=== PATIENT | male | born 1970 | race Caucasian/White ===

== ENCOUNTER 2020-06-14 16:56 | Emergency (ER) | payer OTHER ==
[~2020-06-14] VITALS: Ht 167.6 cm; Wt 97.5 kg
[2020-06-14] MEDS ORDERED: SEROQUEL 100 M100 M1 PO (17:20)
[2020-06-14] MEDS ORDERED: TRAZODONE HCL50 MG PO (17:21)
[2020-06-14] MEDS ORDERED: NORCO 5-325 TA1 EAC2 PO (17:59)
[2020-06-14] MEDS ORDERED: AUGMENTIN 875-1 EACH PO (17:59)
[2020-06-14 19:08] VITALS: BP 130/75
== END 2020-06-14 19:12 | disposition home or self-care (01) ==
LOC: ER 16:56
DX: S71.152A Open bite, left thigh, initial encounter (principal); Z79.899 Other long term (current) drug therapy; Z20.3 Contact with and (suspected) exposure to rabies; W54.0XXA Bitten by dog, initial encounter; Y93.89 Activity, other specified; Y92.89 Other specified places as the place of occurrence of the external cause; Y99.8 Other external cause status

== ENCOUNTER 2020-06-17 13:27 | Emergency (ER) | payer OTHER ==
[~2020-06-17] VITALS: Ht 167.6 cm; Wt 97.5 kg
[~2020-06-17 13:27] MED LIST: AUGMENTIN 875-1 EACH PO; NORCO 5-325 TA1 EAC2 PO; SEROQUEL 100 M100 M1 PO; TRAZODONE HCL50 MG PO
[2020-06-17 14:00] VITALS: BP 126/79
== END 2020-06-17 14:00 | disposition home or self-care (01) ==
LOC: ER 13:27
DX: Z20.3 Contact with and (suspected) exposure to rabies (principal); Z79.899 Other long term (current) drug therapy

== ENCOUNTER 2020-06-20 10:14 | Emergency (ER) | payer OTHER ==
[~2020-06-20] VITALS: Ht 167.6 cm; Wt 97.5 kg
[2020-06-20 10:15] VITALS: BP 130/95
== END 2020-06-20 11:30 | disposition home or self-care (01) ==
LOC: ER 10:14
DX: Z20.3 Contact with and (suspected) exposure to rabies (principal); Z79.899 Other long term (current) drug therapy

== ENCOUNTER 2020-06-27 11:04 | Emergency (ER) | payer OTHER ==
[~2020-06-27] VITALS: Ht 167.6 cm; Wt 99.3 kg
[2020-06-27] MEDS ORDERED: AMOXICILLIN875 MG PO (11:20)
[2020-06-27] MEDS ORDERED: NORCO 10-325 T1 EACH PO (11:20)
== END 2020-06-27 11:31 | disposition home or self-care (01) ==
LOC: ER 11:04
DX: Z20.3 Contact with and (suspected) exposure to rabies (principal); F17.210 Nicotine dependence, cigarettes, uncomplicated; Z79.899 Other long term (current) drug therapy

== ENCOUNTER 2020-08-08 15:13 | Emergency (ER) | payer OTHER ==
[~2020-08-08] VITALS: Ht 167.6 cm; Wt 99.3 kg
[2020-08-08 20:03] VITALS: BP 133/70
== END 2020-08-08 21:56 | disposition left against medical advice (07) ==
LOC: ER 15:13
DX: R10.9 Unspecified abdominal pain (principal); R11.0 Nausea; Z53.21 Procedure and treatment not carried out due to patient leaving prior to being seen by health care provider

== ENCOUNTER → 2020-08-08 | Emergency (ER) | payer OTHER ==
[~2020-08-08] VITALS: Ht 167.6 cm; Wt 99.3 kg
[~2020-08-08] MED LIST changes: +AMOXICILLIN875 MG PO; +NORCO 10-325 T1 EACH PO
[2020-08-08 12:05] VITALS: BP 158/103
== END ==
LOC: ER 12:04
DX: R10.9 Unspecified abdominal pain (principal); R11.0 Nausea; Z53.21 Procedure and treatment not carried out due to patient leaving prior to being seen by health care provider